=== PATIENT | male | born 1945 | race Caucasian/White ===

== ENCOUNTER 2018-01-30 08:53 | Inpatient (IN) | payer OTHER, BC ==
[~2018-01-30] VITALS: Ht 177.8 cm; Wt 84.3 kg
[~2018-01-30 08:53] MED LIST: ASPIR-LOW81 MG PO; BACTRIM,SEPT1 TABLET PO; LIPITOR20 MG PO; TYLENOL WITH C1 EACH PO
[2018-01-30 10:05] LABS: BASOPHIL (%) 0.3 % (0-1); EOSINOPHIL (%) 0 % (0-5); HEMATOCRIT 38.3 % (38.0-50.0); HEMOGLOBIN 13.8 G/DL (12.5-16.6); IMMATURE GRANULOCYTE (%) 0.4 % (0.0-0.7); LYMPHOCYTE (%) 6.7 % (15-42); LYMPHOCYTE COUNT 0.7 K/uL (1.0-2.8); MCH 31.4 PG (29.0-34.0); MONOCYTE (%) 8.6 % (3-12); NEUTROPHIL COUNT 9.3 K/uL (1.8-6.4); PLATELET COUNT 377 K/uL (156-360); RBC DIS.WIDTH-CV 12.3 % (11.8-14.6); RBC DIS.WIDTH-SD 39.2 % (39-53); WHITE BLOOD COUNT 11.1 K/uL (4.1-10.2)
[2018-01-30 10:12] LABS: PTT 26.8 SEC (25-37)
[2018-01-30 10:18] LABS: ALBUMIN 4.2 g/dL (3.2-4.8); CHLORIDE 92 mEq/L (99-109); POTASSIUM 4.5 mEq/L (3.7-5.4); SODIUM 128 mEq/L (136-147)
[2018-01-30 10:21] LABS: GLUCOSE 102 mg/dL (70-99); TOTAL PROTEIN 6.8 g/dL (6.4-8.3)
[2018-01-30 10:23] LABS: TOTAL BILIRUBIN 1.1 mg/dL (0.0-1.0)
[2018-01-30 10:24] LABS: ALKALINE PHOSPHATASE 117 IU/L (3-129); GFR ESTIMATE (CALCULATED) > 59 mL/min/ (58.99-99999)
[2018-01-30 10:25] LABS: UREA NITROGEN (BUN) 23 mg/dL (9-23)
[2018-01-30 10:26] LABS: AST (GOT) 60 IU/L (2-34); TROP-I INTERPRETATION NEGATIVE; TROPONIN-I 0.01 ng/mL (0.0-0.30)
[2018-01-30 10:27] LABS: ALT (GPT) 23 IU/L (3-49); TOTAL CK 1339 IU/L (1-294)
[2018-01-30 10:29] LABS: CREATINE KINASE 1339 IU/L (1-294)
[2018-01-30 10:33] LABS: CK-MB 6.8 ng/mL (0.0-4.9); CKMB RELATIVE INDEX 0.5 (0.0-3.9)
[2018-01-30] MEDS ORDERED: OMEPRAZOLE40 M1 PO (11:42)
[2018-01-30] MEDS ORDERED: FOLIC ACID1 MG PO (11:43)
[2018-01-30] MEDS ORDERED: LISINOPRIL10 MG PO (11:43)
[2018-01-30] MEDS ORDERED: FENOFIBRATE160 M1 PO (11:43)
[2018-01-30] MEDS ORDERED: WELLBUTRIN SR150 MG PO (11:43)
[2018-01-30 15:05] VITALS: BP 140/74
[2018-01-30 19:41] VITALS: BP 134/65
[2018-01-30 23:23] VITALS: BP 144/75
[2018-01-31 03:13] VITALS: BP 136/86
[2018-01-31 06:21] LABS: HEMATOCRIT 32.9 % (38.0-50.0); MCH 31.2 PG (29.0-34.0); MCHC 34.7 G/DL (30.0-36.0); MCV 90.1 FL (86-99); PLATELET COUNT 354 K/uL (156-360); RBC DIS.WIDTH-CV 12.8 % (11.8-14.6); RBC DIS.WIDTH-SD 42.5 % (39-53); RED BLOOD COUNT 3.65 M/uL (4.00-5.50); WHITE BLOOD COUNT 7.9 K/uL (4.1-10.2)
[2018-01-31 06:25] LABS: HEMOGLOBIN 11.4 G/DL (12.5-16.6)
[2018-01-31 06:34] LABS: CHLORIDE 98 MEQ/L (99-109); CREATININE 0.9 MG/DL (0.6-1.3); GFR ESTIMATE (CALCULATED) > 59 mL/min/ (58.99-99999); GLUCOSE 80 mg/dL (70-99); SODIUM 130 MEQ/L (136-147); UREA NITROGEN (BUN) 24 mg/dL (9-23)
[2018-01-31 07:51] VITALS: BP 145/77
[2018-01-31 11:21] VITALS: BP 145/76
[2018-01-31 19:39] VITALS: BP 139/68
[2018-01-31 23:07] VITALS: BP 106/59
[2018-02-01 03:39] VITALS: BP 140/85
[2018-02-01 04:51] LABS: BENZODIAZEPINES, URINE SCREEN Negative (200 ng/mL)
[2018-02-01 06:03] LABS: BASOPHIL (%) 1.1 % (0-1); BASOPHIL COUNT 0.1 K/uL (0-0.1); EOSINOPHIL (%) 1.3 % (0-5); EOSINOPHIL COUNT 0.1 K/uL (0-0.3); HEMATOCRIT 31.2 % (38.0-50.0); HEMOGLOBIN 10.6 G/DL (12.5-16.6); IMMATURE GRANULOCYTE (%) 0.3 % (0.0-0.7); LYMPHOCYTE (%) 22.2 % (15-42); LYMPHOCYTE COUNT 1.4 K/uL (1.0-2.8); MCH 30.7 PG (29.0-34.0); MCV 90.4 FL (86-99); MONOCYTE (%) 9.5 % (3-12); MONOCYTE COUNT 0.6 K/uL (0-0.8); NEUTROPHIL (%) 65.6 % (45-76); NEUTROPHIL COUNT 4.2 K/uL (1.8-6.4); PLATELET COUNT 373 K/uL (156-360); RBC DIS.WIDTH-CV 12.7 % (11.8-14.6); RED BLOOD COUNT 3.45 M/uL (4.00-5.50); WHITE BLOOD COUNT 6.4 K/uL (4.1-10.2)
[2018-02-01 06:33] LABS: CHLORIDE 101 MEQ/L (99-109); CREATINE KINASE 259 IU/L (1-294); CREATININE 0.8 MG/DL (0.6-1.3); GFR ESTIMATE (CALCULATED) > 59 mL/min/ (58.99-99999); GLUCOSE 82 mg/dL (70-99); POTASSIUM 3.6 MEQ/L (3.7-5.4); SODIUM 135 MEQ/L (136-147); UREA NITROGEN (BUN) 13 mg/dL (9-23)
[2018-02-01 07:38] VITALS: BP 144/80
[2018-02-01 11:37] VITALS: BP 113/68
[2018-02-01 15:30] VITALS: BP 145/65
[2018-02-01 20:30] VITALS: BP 169/82
[2018-02-01 23:59] VITALS: BP 171/77
[2018-02-02 04:27] VITALS: BP 180/82
[2018-02-02 04:46] VITALS: BP 180/80
[2018-02-02 06:42] LABS: HEMATOCRIT 31.4 % (38.0-50.0); HEMOGLOBIN 10.6 G/DL (12.5-16.6); MCH 30.9 PG (29.0-34.0); MCHC 33.8 G/DL (30.0-36.0); MCV 91.5 FL (86-99); PLATELET COUNT 397 K/uL (156-360); RBC DIS.WIDTH-CV 12.9 % (11.8-14.6); RBC DIS.WIDTH-SD 42.9 % (39-53); RED BLOOD COUNT 3.43 M/uL (4.00-5.50); WHITE BLOOD COUNT 6.1 K/uL (4.1-10.2)
[2018-02-02 06:57] LABS: CHLORIDE 99 MEQ/L (99-109); CREATININE 0.9 MG/DL (0.6-1.3); GFR ESTIMATE (CALCULATED) > 59 mL/min/ (58.99-99999); GLUCOSE 79 mg/dL (70-99); POTASSIUM 3.7 MEQ/L (3.7-5.4); SODIUM 134 MEQ/L (136-147); UREA NITROGEN (BUN) 13 mg/dL (9-23)
[2018-02-02 08:12] VITALS: BP 157/81
[2018-02-02] MEDS ORDERED: LISINOPRIL40 MG PO (09:58)
[2018-02-02] MEDS ORDERED: ENDOCET 5-3251 EACH PO (09:59)
== END 2018-02-02 12:41 | disposition home health service (06) | DRG 565 ==
LOC: EME 08:53 → 3EAST 12:22 → EDOF 12:22 → CANRESERV 12:23 → ENRESERV 12:23 → 3EAST 14:38
PROVIDERS: Emergency Medicine; Internal Medicine; Physician Assistant; Physician Assistant Medical
DX: T79.6XXA Traumatic ischemia of muscle, initial encounter (principal); S42.212A Unspecified displaced fracture of surgical neck of left humerus, initial encounter for closed fracture; S42.252A Displaced fracture of greater tuberosity of left humerus, initial encounter for closed fracture; W18.30XA Fall on same level, unspecified, initial encounter; Y92.000 Kitchen of unspecified non-institutional (private) residence as the place of occurrence of the external cause; S32.030A Wedge compression fracture of third lumbar vertebra, initial encounter for closed fracture; E87.1 Hypo-osmolality and hyponatremia; E86.0 Dehydration; E87.6 Hypokalemia; I10 Essential (primary) hypertension; K21.9 Gastro-esophageal reflux disease without esophagitis; E78.5 Hyperlipidemia, unspecified; G89.29 Other chronic pain; M54.5 Low back pain; M17.0 Bilateral primary osteoarthritis of knee; R25.1 Tremor, unspecified; F32.9 Major depressive disorder, single episode, unspecified; F17.210 Nicotine dependence, cigarettes, uncomplicated; R29.6 Repeated falls; Z60.2 Problems related to living alone; Z82.49 Family history of ischemic heart disease and other diseases of the circulatory system
CPT/HCPCS: 70450; 71045; 72100; 72148; 73030; 73060; 80048; 80053; 80306 90; 82550; 82553; 83930; 83935; 84484; 85025; 85027; 85610; 85730; 93005; 99281; 99285; G0480; J0360; J1650; J7030

== ENCOUNTER 2018-03-14 13:41 | Inpatient (IN) | payer OTHER, BC ==
[~2018-03-14] VITALS: Ht 185.4 cm; Wt 83.4 kg
[~2018-03-14 13:41] MED LIST changes: +ENDOCET 5-3251 EACH PO; +FENOFIBRATE160 M1 PO; +FOLIC ACID1 MG PO; +LISINOPRIL10 MG PO; +LISINOPRIL40 MG PO; +OMEPRAZOLE40 M1 PO; +WELLBUTRIN SR150 MG PO
[2018-03-14 15:17] LABS: HEMATOCRIT 35.5 % (38.0-50.0); HEMOGLOBIN 12.8 G/DL (12.5-16.6); MCH 31.4 PG (29.0-34.0); MCHC 36.1 G/DL (30.0-36.0); PLATELET COUNT 283 K/uL (156-360); RBC DIS.WIDTH-SD 41.6 % (39-53); RED BLOOD COUNT 4.08 M/uL (4.00-5.50); WHITE BLOOD COUNT 10.9 K/uL (4.1-10.2)
[2018-03-14 15:25] LABS: ALBUMIN 3.9 g/dL (3.2-4.8); CHLORIDE 96 mEq/L (99-109); POTASSIUM 3.9 mEq/L (3.7-5.4); SODIUM 132 mEq/L (136-147)
[2018-03-14 15:27] LABS: GLUCOSE 119 mg/dL (70-99)
[2018-03-14 15:28] LABS: TOTAL PROTEIN 6.4 g/dL (6.4-8.3)
[2018-03-14 15:29] LABS: TOTAL BILIRUBIN 0.9 mg/dL (0.0-1.0)
[2018-03-14 15:30] LABS: SERUM ETHYL ALCOHOL < 10 mg/dL
[2018-03-14 15:31] LABS: ALKALINE PHOSPHATASE 132 IU/L (3-129); CREATININE 0.9 mg/dL (0.6-1.3); GFR ESTIMATE (CALCULATED) > 59 mL/min/ (58.99-99999)
[2018-03-14 15:32] LABS: UREA NITROGEN (BUN) 10 mg/dL (9-23)
[2018-03-14 15:33] LABS: AST (GOT) 33 IU/L (2-34)
[2018-03-14 15:34] LABS: ALT (GPT) 17 IU/L (3-49)
[2018-03-14 17:14] LABS: MAGNESIUM 1.6 mg/dL (1.3-2.7)
[2018-03-14] MEDS ORDERED: WELCHOL625 MG PO (17:19)
[2018-03-14] MEDS ORDERED: CELEBREX200 MG PO (17:20)
[2018-03-14] MEDS ORDERED: LO-DOSE ASPIRIN81 M1 PO (17:21)
[2018-03-14] MEDS ORDERED: TRAMADOL HCL50 MG PO (17:22)
[2018-03-14] MEDS ORDERED: LISINOPRIL10 MG PO (17:23)
[2018-03-14] MEDS ORDERED: MIRALAX119 GM PO (17:24)
[2018-03-14 17:38] VITALS: BP 158/76
[2018-03-14 19:10] VITALS: BP 134/77
[2018-03-15 00:01] VITALS: BP 159/88
[2018-03-15 03:40] VITALS: BP 140/77
[2018-03-15 08:33] VITALS: BP 153/81
[2018-03-15 13:00] VITALS: BP 137/79
[2018-03-15 17:49] LABS: CHLORIDE 97 MEQ/L (99-109); CREATININE 0.9 MG/DL (0.6-1.3); GFR ESTIMATE (CALCULATED) > 59 mL/min/ (58.99-99999); GLUCOSE 92 mg/dL (70-99); MAGNESIUM 1.5 mg/dl (1.3-2.7); POTASSIUM 3.6 MEQ/L (3.7-5.4); SODIUM 130 MEQ/L (136-147); UREA NITROGEN (BUN) 11 mg/dL (9-23)
[2018-03-15 18:59] VITALS: BP 134/77
[2018-03-16] VITALS (7 sets, daily range): BP systolic 135–172; BP diastolic 76–97
[2018-03-16 04:53] LABS: HEMATOCRIT 34.1 % (38.0-50.0); HEMOGLOBIN 11.4 G/DL (12.5-16.6); MCH 30.2 PG (29.0-34.0); MCHC 33.4 G/DL (30.0-36.0); MCV 90.2 FL (86-99); PLATELET COUNT 230 K/uL (156-360); RBC DIS.WIDTH-CV 13.2 % (11.8-14.6); RBC DIS.WIDTH-SD 44.1 % (39-53); RED BLOOD COUNT 3.78 M/uL (4.00-5.50)
[2018-03-16 05:28] LABS: ALBUMIN 3.6 G/DL (3.2-4.8); ALKALINE PHOSPHATASE 86 IU/L (3-129); ALT (GPT) 12 IU/L (3-49); AST (GOT) 23 IU/L (2-34); CHLORIDE 101 MEQ/L (99-109); CREATININE 0.9 MG/DL (0.6-1.3); GFR ESTIMATE (CALCULATED) > 59 mL/min/ (58.99-99999); GLUCOSE 88 mg/dL (70-99); MAGNESIUM 1.6 mg/dl (1.3-2.7); POTASSIUM 3.2 MEQ/L (3.7-5.4); SODIUM 135 MEQ/L (136-147); TOTAL BILIRUBIN 0.6 MG/DL (0.0-1.0); UREA NITROGEN (BUN) 8 mg/dL (9-23)
[2018-03-17 03:19] VITALS: BP 161/70
[2018-03-17 07:30] VITALS: BP 162/86
[2018-03-17] MEDS ORDERED: NYSTATIN15 GM TP (08:38)
[2018-03-17 11:16] LABS: CHLORIDE 104 MEQ/L (99-109); CREATININE 0.9 MG/DL (0.6-1.3); GFR ESTIMATE (CALCULATED) > 59 mL/min/ (58.99-99999); MAGNESIUM 1.8 mg/dl (1.3-2.7); SODIUM 139 MEQ/L (136-147); UREA NITROGEN (BUN) 9 mg/dL (9-23)
[2018-03-17 11:28] LABS: GLUCOSE 151 mg/dL (70-99); POTASSIUM 3.9 MEQ/L (3.7-5.4)
[2018-03-17 12:15] VITALS: BP 166/78
[2018-03-17 15:55] VITALS: BP 125/55
== END 2018-03-17 15:55 | DRG 897 ==
LOC: EME 13:41 → 4SOUTH 16:31 → EDOF 16:31 → ENRESERV 16:35 → 4SOUTH 17:22
PROVIDERS: Family Medicine; Internal Medicine
DX: F10.231 Alcohol dependence with withdrawal delirium (principal); E78.5 Hyperlipidemia, unspecified; I10 Essential (primary) hypertension; F17.200 Nicotine dependence, unspecified, uncomplicated; R29.6 Repeated falls; S42.202A Unspecified fracture of upper end of left humerus, initial encounter for closed fracture; W18.30XA Fall on same level, unspecified, initial encounter; K21.9 Gastro-esophageal reflux disease without esophagitis; G47.33 Obstructive sleep apnea (adult) (pediatric); I49.5 Sick sinus syndrome; F41.9 Anxiety disorder, unspecified; Z79.899 Other long term (current) drug therapy; Z91.81 History of falling; Z90.49 Acquired absence of other specified parts of digestive tract; Z79.82 Long term (current) use of aspirin
CPT/HCPCS: 73060; 80048; 80053; 82948; 83735; 85027; 93005; 97530 GP; 99281; 99285; G0480; J1644; J2060; J2405; J3411; J3475; J7030; J7040; S0028